=== PATIENT | female | born 1990 | race Caucasian/White ===

== ENCOUNTER 2016-10-19 20:56 | Emergency (ER) | payer OTHER ==
[2016-10-19 21:07] VITALS: O2SAT 100
--- NOTE | 2016-10-19 21:47 | C.PDOC ---
History Of Present Illness Patient is a 26 y/o female, 15 weeks , presents to the ED for evaluation after noticing blood when she wiped herself after urination. Patient states she did not notice this in her first . Notes she had a c- section 1 year ago. 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 Otherwise, denies any dysuria, urinary frequency, retentions, abdominal pain, n/ v/d, fever, or any other associated symptoms at this time. Time Seen by Provider: 10/19/16 21:30 Chief Complaint (Nursing): Female Genitourinary History Per: Patient History/Exam Limitations: no limitations Onset/Duration Of Symptoms: Days Current Symptoms Are (Timing): Still Present Severity: None Pain Scale Rating Of: 0 Associated Symptoms: denies: Fever, Chills, Nausea, Vomiting, Diarrhea, Loss Of Appetite, Back Pain, Chest Pain, Constipation Alleviating Factors: None Recent travel outside of the [place]: No Additional History Per: Patient Past Medical History Reviewed: Historical Data, Nursing Documentation, Vital Signs Vital Signs: Last Vital Signs Temp 99.3 F 10/19/16 21:00 Pulse 95 H 10/19/16 21:00 Resp 16 10/19/16 21:00 BP 111/72 10/19/16 21:00 Pulse Ox 100 10/19/16 22:34 Family History: States: Unknown Family Hx - Social History Hx Alcohol Use: No Hx Substance Use: No - Immunization History Hx Tetanus Toxoid Vaccination: No Hx Influenza Vaccination: No Hx Pneumococcal Vaccination: No Review Of Systems Except As Marked, All Systems Reviewed And Found Negative. Constitutional: Negative for: Fever, Chills Gastrointestinal: Negative for: Nausea, Vomiting, Abdominal Pain, Diarrhea, Constipation Genitourinary: Positive for: Other (blood when wiping). Negative for: Dysuria, Frequency, Incontinence, Vaginal Discharge, Pelvic Pain Musculoskeletal: Negative for: Back Pain Skin: Negative for: Rash Physical Exam - Physical Exam Appears: Non-toxic, No Acute Distress Skin: Normal Color, Warm, Dry Head: Atraumatic, Normacephalic Eye(s): bilateral: Normal Inspection Neck: Normal ROM, Supple Chest: Symmetrical Cardiovascular: Rhythm Regular, No Murmur Respiratory: Normal Breath Sounds, No Rales, No Rhonchi, No Wheezing Gastrointestinal/Abdominal: Soft, No Tenderness, No Guarding, No Rebound Extremity: Normal ROM, No Deformity Extremity: Bilateral: Atraumatic Neurological/Psych: Oriented x3, Normal Speech, Normal Cognition ED Course And Treatment - Laboratory Results Result Diagrams: 10/19/16 21:44 10/19/16 21:44 Lab Interpretation: No Acute Changes O2 Sat by Pulse Oximetry: 100 (on RA) Pulse Ox Interpretation: Normal - CT Scan/US US Other Rad Studies (CT/US): Read By Radiologist, Radiology Report Reviewed CT/US Interpretation: History: 26 years old, female; Signs and symptoms; Lmp or gestational age (in weeks): 06/27/2016;. Other: Vaginal spotting; ; Additional info: bleeding. Gender: female. Age: 26 years. Exam: US LTD ONE OR MORE FETUSES. Comparison: Ultrasound examination of the gravid uterus was performed, limited. There is a single intrauterine , at approximately 17 weeks menstrual age. Presentation is breech. Cardiac activity is noted with a heart rate of 137 beats per minute. The placenta is anterior and free of the os. Amniotic fluid appears appropriate. No gross abnormalities are seen. Impression: Limited study demonstrating intrauterine at approximately 17 weeks menstrual age, as above. Progress Note: Blood work, urinalysis, pelvis ultrasound ordered and reviewed. Reevaluation Time: 23:12 Reassessment Condition: Improved (Patient asymptomatic at this time.) Disposition - Disposition Disposition: HOME/ ROUTINE Disposition Time: 23:12 Condition: STABLE Instructions: (ED) - Clinical Impression Clinical Impression: Vaginal bleeding during , antepartum - Scribe Statement The provider has reviewed the documentation as recorded by the Derek Ferreira All medical record entries made by the [place] were at my direction and personally dictated by me. I have reviewed the chart and agree that the record accurately reflects my personal performance of the history, physical exam, medical decision making, and the department course for this patient. I have also personally directed, reviewed, and agree with the discharge instructions and disposition.
[2016-10-19 21:56] LABS: BASO % 0.2 % (0.0-2.0); EOS % 0.3 % (0.0-4.0); HEMOGLOBIN 10.5 g/dL (11.0-16.0); LYMPH # 3.7 K/uL (1.0-4.3); LYMPH % 27.1 % (20.0-40.0); MEAN CELL VOLUME 89.4 fL (81.0-99.0); MEAN CORPUSCULAR HEMOGLOBIN 29.3 pg (27.0-31.0); MEAN CORPUSCULAR HGB CONC 32.8 g/dL (33.0-37.0); MEAN PLATELET VOLUME 7.5 fL (7.2-11.7); MONO % 7.2 % (0.0-10.0); NEUT # 8.8 K/uL (1.8-7.0); NEUT % 65.2 % (50.0-75.0); RBC 3.56 Mil/uL (3.80-5.20); RED CELL DISTRIBUTION WIDTH 13.2 % (11.5-14.5); WHITE BLOOD COUNT 13.5 K/uL (4.8-10.8)
[2016-10-19 22:21] LABS: ALBUMIN 3.5 g/dL (3.5-5.0)
[2016-10-19 22:22] LABS: SQUAMOUS EPITHIAL 2 /hpf (0-5); URINE BACTERIA RARE (<OCC); URINE BILIRUBIN NEGATIVE (NEGATIVE); URINE BLOOD 2+ (NEGATIVE); URINE CLARITY Clear (Clear); URINE COLOR Straw (YELLOW); URINE GLUCOSE (UA) NORMAL (Normal); URINE LEUKOCYTE ESTERASE NEG Leu/uL (Negative); URINE NITRATE NEGATIVE (NEGATIVE); URINE PROTEIN NEGATIVE (NEGATIVE); URINE UROBILINOGEN NORMAL mg/dL (0.2-1.0)
[2016-10-19 22:24] LABS: ALB/GLOB RATIO 1.2 (1.0-2.1); AST/SGOT 20 U/L (14-36); GFR AFRICAN-AMERICAN > 60; GFR NON-AFRICAN AMERICAN > 60
[2016-10-19 22:25] LABS: ALT/SGPT 24 U/L (9-52); BLOOD UREA NITROGEN 3 mg/dL (7-17); CALCIUM 8.8 mg/dl (8.6-10.4)
--- NOTE | 2016-10-19 22:28 | US ---
History: 26 years old, female; Signs and symptoms; Lmp or gestational age (in weeks): 06/27/2016; Other: Vaginal spotting; ; Additional info: bleeding Gender: female Age: 26 years Exam: US LTD ONE OR MORE FETUSES Comparison: Ultrasound examination of the gravid uterus was performed, limited. There is a single intrauterine , at approximately 17 weeks menstrual age. Presentation is breech. Cardiac activity is noted with a heart rate of 137 beats per minute. The placenta is anterior and free of the os. Amniotic fluid appears appropriate. No gross abnormalities are seen. Impression: Limited study demonstrating intrauterine at approximately 17 weeks menstrual age, as above.
[2016-10-19] MEDS ORDERED: Potassium Chloride 20 mEq ER Tab PO ONE (23:22)
[2016-10-19 23:26] VITALS: BP 113/71; PULSE 69; RESP 20; TEMP 98.4
[2016-10-19] MEDS ORDERED: Potassium Chloride 20 mEq ER Tab PO STA (23:37)
== END 2016-10-19 23:30 | disposition home or self-care (01) ==
LOC: C.ER 20:56
DX: O20.9 Hemorrhage in early pregnancy, unspecified (principal); Z3A.15 15 weeks gestation of pregnancy

== ENCOUNTER 2017-03-28 06:14 | Inpatient (IN) | payer OTHER ==
[2017-03-28 06:28] VITALS: BMI 30.2
[2017-03-28] MEDS ORDERED: Lactated Ringer's 1,000 ML IV ONE (06:36)
[2017-03-28 06:57] LABS: HEMATOCRIT 33.5 % (34.0-47.0); MEAN CELL VOLUME 88.9 fL (81.0-99.0); MEAN CORPUSCULAR HEMOGLOBIN 29.6 pg (27.0-31.0); MEAN CORPUSCULAR HGB CONC 33.3 g/dL (33.0-37.0); MEAN PLATELET VOLUME 9.5 fL (7.2-11.7); RED CELL DISTRIBUTION WIDTH 15.5 % (11.5-14.5); WHITE BLOOD COUNT 11.3 K/uL (4.8-10.8)
[2017-03-28 07:08] LABS: ALKALINE PHOSPHATASE 174 U/L (38-126); ALT/SGPT 18 U/L (9-52); AST/SGOT 19 U/L (14-36); BILIRUBIN,TOTAL 0.4 mg/dL (0.2-1.3); BLOOD UREA NITROGEN 6 mg/dL (7-17); CALCIUM 8.9 mg/dl (8.6-10.4); CARBON DIOXIDE 21 mmol/L (22-30); CHLORIDE 103 mmol/L (98-107); GFR AFRICAN-AMERICAN > 60; GLUCOSE,RANDOM 66 mg/dL (65-105); POTASSIUM 3.7 mmol/L (3.6-5.2); SODIUM 131 mmol/L (132-148); TOTAL PROTEIN 6.5 g/dL (6.3-8.3)
--- NOTE | 2017-03-28 07:08 | OBADHP ---
Datetime: 03/28/2017 07:03 Admit Comment, IP Provider: chief complaint-scheduled csection HPI 27 y/o at 39.1 wga here for scheduled csection cours euncomplicated a sper patient PMH denies PSH csection OBGYN HX Socila hx deneis tobacco,alochol or illicit drug use Exam see exam section A/P Patienta t 39.1wga here for scheduled csection -admit -see orders Extremities - PN: Normal Abdomen - PN: Normal Back - PN: Normal Lungs - PN: Normal Heart - PN: Normal Neurologic - PN: Normal General - PN: Normal Vital Signs Provider: Reviewed; Within Normal Limits IP Chief Complaint: Scheduled Section FHR Category Provider Fetus A: Category I EGA AdmitDate IP: 39.1 IP Adm Impression: Term, intrauterine IP Admit Plan: Admit to unit; Initiate Section protocol
[2017-03-28] MEDS ORDERED: Sodium Citrate/Citric Acid 15 ml Sol PO ONE (07:09)
[2017-03-28 07:12] LABS: RBC URINE < 1 /hpf (0-3); URINE BACTERIA RARE (<OCC); URINE BILIRUBIN NEGATIVE (NEGATIVE); URINE BLOOD NEGATIVE (NEGATIVE); URINE COLOR Yellow (YELLOW); URINE GLUCOSE (UA) NORMAL (Normal); URINE KETONE TRACE mg/dL (NEGATIVE); URINE LEUKOCYTE ESTERASE NEG Leu/uL (Negative); URINE PROTEIN NEGATIVE (NEGATIVE); URINE UROBILINOGEN NORMAL mg/dL (0.2-1.0); WBC URINE 3 /hpf (0-5)
[2017-03-28 07:21] LABS: ALB/GLOB RATIO 1.1 (1.0-2.1)
[2017-03-28] MEDS ORDERED: Sodium Citrate/Citric Acid 15 ml Sol ONE (07:34)
[2017-03-28] MEDS ORDERED: ceFAZolin IV 2 gm in Dextrose 2 GM/50 ML BAG IVPB ONE ×2 (07:34→08:00)
[2017-03-28] MEDS ORDERED: Oxytocin 10 Units/ml Inj ONE (07:34)
[2017-03-28] MEDS ORDERED: Oxytocin 20 units in LR 2,000 ML IV ONE (07:35)
[2017-03-28] MEDS ORDERED: ePHEDrine 50 mg/ml Inj ONE (07:59)
[2017-03-28] MEDS ORDERED: Phenylephrine 10 mg/ml Inj ONE (08:25)
[2017-03-28] MEDS: Prenatal Multivit/Folic Acid/Iron Tab PO SCH (13:28)
[2017-03-28] MEDS: Simethicone 80 mg Chewtab PO SCH ×4 (13:28→23:25)
[2017-03-28 16:13] VITALS: RESP 20
[2017-03-28] MEDS: Oxycodone/Acetaminophen 5/325 mg Tab PO PRN ×2 (17:19→19:07)
--- NOTE | 2017-03-28 19:20 | OBDS ---
DELIVERY PERSONNEL Delivery Doctor: Shine Irving MD Scrub Nurse: Belen Lechuga [employer] Advisor: Suzanne García RN Anesthesiologist: MATERNAL INFORMATION Delivery Anesthesia: Spinal Medications in Delivery: Pitocin 20 unit IV Estimated Blood Loss (ml): 1000 Placenta Cultured: Yes Maternal Complications: None RN Comments: Liveborn Baby Boy. 9-9 Provider Comments: Repeat transverse section performed with delivery of live male infant, d irect OP position, weight 9lb 3oz, 's 9/9. Cord pH 7.10; base XS -12.2. Modified [employer] [place] procedu re performed for permanent sterilizaion - uncomplicated. Lysis of adhesion also performed. Patient t olerated procedure well. Hemostasis assured. LABOR SUMMARY EDC: 04/03/2017 00:00 No. Babies in Womb: 1 Attempted: No Labor Anesthesia: None LABOR INFORMATION Reason for Induction: Not Applicable Oxytocin: N/A Group B Beta Strep: Negative (Annotations: 03/01/17) Antibiotics # of Doses: 1 Antibiotics Time of Last Dose: Ancef 2gm IV @0803 Steroids Given: None Reason Steroids Not Administered: Not Applicable MEMBRANES Membranes Rupture Method: Artificial Rupture of Membranes: 03/28/2017 08:43 Length of Rupture (hrs): 0.02 Amniotic Fluid Color: Clear Amniotic Fluid Amount: Moderate Amniotic Fluid Odor: Normal STAGES OF LABOR Stage 3 hrs: 0 Stage 3 min: 1 CSECTION DELIVERY Primary Indication: Repeat Elective CSection Urgency: Non Elective CSection Incidence: Repeat Labor: Labor Elective: Nonelective CSection Incision: Lower Uterine Transverse Sterilization Procedure: Kyra Uterine Closure: Three layers BABY A INFORMATION Infant Delivery Date/Time: 03/28/2017 08:44 Method of Delivery: Born in Route : No : N/A Forceps: N/A Vacuum Extraction: N/A Shoulder Dystocia : No SHOULDER DYSTOCIA BABY A Delivery Date/Time: 03/28/2017 08:44 PRESENTATION/POSITION BABY A Presentation: Cephalic Cephalic Presentation: Vertex Vertex Position: Direct OP Breech Presentation: N/A PLACENTA INFORMATION BABY A Placenta Delivery Time : 03/28/2017 08:45 Placenta Method of Delivery: Manual Removal Placenta Status: Delivered SCORES BABY A Heart Rate 1 min: >100 bpm Resp Effort 1 min: Good Cry Reflex Irritability 1 min: Cough or Sneeze or Pulls Away Muscle Tone 1 min: Active Motion Color 1 min: Body [place], Extremities Blue Resuscitation Effort 1 min: N/A SCORE 1 MIN: 9 Heart Rate 5 min: >100 bpm Resp Effort 5 min: Good Cry Reflex Irritability 5 min: Cough or Sneeze or Pulls Away Muscle Tone 5 min: Active Motion Color 5 min: Body [place], Extremities Blue Resuscitation Effort 5 min: N/A SCORE 5 MIN: 9 INFANT INFORMATION BABY A Gestational Age at Delivery: 39.1 Gestational Status: Term Infant Outcome : Liveborn Condition : Stable Sex: Male IDENTIFICATION/MEDS BABY A ID Band Number: [id number] ID Band Location: Left Leg; Left Arm Sensor Applied: Yes Sensor Number: [id number] Sensor Location : Cord Clamp Vitamin K Given : Not Given Erythromycin Given: Not Given WEIGHT/LENGTH BABY A Birthweight (gms): 4160 Infant Weight (lb): 9 Weight (oz): 3 Length Inches: 20.00 Infant Length cms: 50.8 CORD INFORMATION BABY A No. Cord Vessels: 3 Nuchal Cord : N/A Infant Cord pH Baby Arterial: 7.10 Cord Blood Taken: Yes Infant Suction: Mouth; Nose ASSESSMENT BABY A Infant Complications: None Physical Findings at Delivery: Within Normal Limits Infant Respirations: Appears Normal Marble Cutter/ALS Called : No Care By: Transferred To: Nursery
--- NOTE | 2017-03-28 19:28 | PCM.SURG1 ---
Surgeon's Initial Post Op Note - Surgeon's Notes Surgeon: Sharon Irving MD Special Educator: Stanley Esparza MD Type of Anesthesia: Spinal Anesthesia Administered By: Ashish Ramsey MD Pre-Operative Diagnosis: 39 weeks 2 days gestation, previous section; desires permanent sterilizaton. Operative Findings: Live male , direct OP, weight 9lb 3 oz, 's 9/9. Cord pH 7.10, base excess -12.2. Mild filmy adhesions anteriorly; one moderately dense band of adheison anteriorly at level of body. Normal uterus; normal ovaries and fallopian tubes, bilaterally Post-Operative Diagnosis: Same; status post bilateral tubal ligation; lysis of adhesion Operation Performed: Transverse [place] section. Lysis of adhesion. Bilateral tubal ligation Specimen/Specimens Removed: Segments of right and left fallopian tubes Estimated Blood Loss: EBL {In ML}: 1,000 (U.O. 300 mL; IVFs 1,300 mL LR with 20 units pitocin) Blood Products Given: N/A Drains Used: No Drains Post-Op Condition: Good Date of Surgery/Procedure: 03/28/17 Time of Surgery/Procedure: 10:00
[2017-03-29] MEDS: Oxycodone/Acetaminophen 5/325 mg Tab PO PRN ×4 (03:02→21:25)
--- NOTE | 2017-03-29 04:37 | OP ---
PROCEDURE DATE: 03/28/2017 PREOPERATIVE DIAGNOSES: A 39 weeks 2 days gestation, previous section, desiring permanent sterilization. POSTOPERATIVE DIAGNOSES: A 39 weeks 2 days gestation, previous section, desiring permanent sterilization, status post bilateral tubal ligation, lysis of adhesions. SURGEON: Sharon Irving MD. ENVIRONMENTAL COMPLIANCE SPECIALIST: Stanley Esparza MD. ANESTHESIOLOGIST: Ashish Ramsey MD. ANESTHESIA TYPE: Spinal. OPERATIVE FINDINGS: Live male from a direct occipital posterior position, weight of 9 pounds 3 ounces and Apgars of 9 and 9 at 1 and 5 minutes respectively. Cord pH was 7.10, base excess was -12.2. Mild filmy adhesions were noted anteriorly and there was one moderately dense band of adhesion anteriorly at the level of the body of the uterus. Otherwise, uterus was normal with normal ovaries and fallopian tubes bilaterally. OPERATION PERFORMED: Transverse section, lysis of adhesions and bilateral tubal ligation. SPECIMENS: Segment of right and left fallopian tubes was submitted to pathology. ESTIMATED BLOOD LOSS: 1000 mL. URINE OUTPUT: 300 mL. INTRAVENOUS FLUIDS: 1300 mL of lactated Ringer's with 20 units of Pitocin in each bag. BLOOD PRODUCTS GIVEN: None. COMPLICATIONS: None. PROCEDURE IN DETAIL: The patient was taken to the operating room after having obtained informed consent for the anticipated procedure. This included a discussion of possible risks and complications including, but not limited to, infection requiring continued antibiotics, hemorrhage requiring blood transfusion, repair of any damage to internal organs, possible hysterectomy. The patient desired permanent sterilization, and upon review of the consent for the same, she reaffirmed her desire for permanent sterilization. The patient received Mefoxin 2 g prior to being transferred to the main recovery room and a Johnson indwelling catheter had been inserted under sterile condition. Once in the operating room, she was placed on the operating room table where spinal anesthesia was administered without incident. She was immediately repositioned into supine position. The abdomen was prepped and she was subsequently draped in the usual sterile fashion. After assuring an adequate level of anesthesia, using a scalpel, incision was made through the previous scar. The incision was carried down through the subcutaneous tissue to the level of the fascia. The fascia was identified and nicked and this incision was extended bilaterally using the Bovie electrocautery. The rectus muscle was dissected off the overlying fascia. Using the scalpel, the muscle was in the midline. The parietal peritoneum was tented up using two Urszula clamps and the abdomen was entered using sharp dissection. The uterus was extremely deviated upon entering the abdominal cavity and in making attempts to orient the uterus in a more anatomic manner, filmy adhesions that were noted were lysed by blunt dissection. There was one band as described above that was identified. It was doubly clamped using Urszula clamps and the adhesion was lysed and secured using free tie 0 chromic however of the sides of the uterus, getting safely to the lower uterine segment was not possible and therefore the incision was actually made more in the area of the body of the uterus. Upon getting to the level of the anterior placenta, dissecting through the placenta and getting to the amnion, amniotomy was performed and a moderate amount of clear fluid was obtained. Atraumatic delivery of the infant with findings as above then ensued on the operative field. The 's mouth and nose were bulb suctioned as the cord was doubly clamped and cut. The was handed off the operative field to the mechanical manager in attendance. A segment of the umbilical cord was requested for cord pH analysis with results as above. With bimanual extraction, the placenta was removed. It was grossly intact with three vessels in the cord. The uterus was then successfully exteriorized for closure. This was done in three layers; the first two layers were in a running interlocking manner and the third layer which incorporated the serosa was done in a horizontal imbricating manner. Additional sutures were needed along the uterine incision using 2-0 Monocryl and [id number] stitch to assure hemostasis. At the area of the lysis of adhesions further up on the uterus, hemostasis was again assured using 2-0 Monocryl in a running interlocking fashion. Attention was then directed to the right fallopian tube in the area of the mid-isthmic. An intervening segment of clear mesosalpinx was noted. This was grasped with a Jitendra clamp. Using plain gut x2, free ties were applied with blanching of the fallopian tube noted. The intervening mesosalpinx was pierced using the Metzenbaum and the segment was excised and submitted to pathology for further affirmation. Hemostasis was assured using the Bovie electrocautery. A similar procedure was performed on the left fallopian tube. After assuring adequate hemostasis, attention was then directed to the posterior aspect of the uterus. Copious irrigation was performed. Findings as above. The attention was then redirected back to the uterine incision and the bladder flap was reapproximated using 2-0 chromic in a running fashion. A layer of Surgicel actually had been placed along the uterine incision prior to reapproximating the bladder flap. The uterus was then returned to the abdominal cavity. The paracolic gutters were cleared of all debris. The ligated ends of fallopian tubes were identified and noted to be hemostatic. The parietal peritoneum was then reapproximated using 2-0 chromic in a running fashion. The muscle was reapproximated using 2-0 chromic in a running fashion. The fascia was reapproximated using 1-0 Vicryl in a running fashion in one half. The subcutaneous tissue was reapproximated using plain catgut in a running manner and the skin was reapproximated using surgical clips. Pressure dressing was applied. The patient was repositioned in a supine manner. Exploration of the uterine cavity then ensued and the uterus was emptied of all clots and debris. It was contracted and firm and noted to be at the level of the umbilicus. The patient tolerated the procedure well. She was transferred back to [facility] in stable condition. The had been transferred initially to [facility] in stable condition. Dr. Esparza was present throughout the entire procedure from beginning to end. His presence was necessary for 1. Adequate visualization of the operative field at all times. 2. Safe and atraumatic delivery of the as described above. 3. Assuring adequate hemostasis throughout. Sharon MD Aristides
--- NOTE | 2017-03-29 06:43 | OBPPN ---
Datetime: 03/29/2017 06:40 PP Pain Prov: Within normal limits PP Nausea Prov: Denies PP Abdomen/Uterus Prov: Normal PP Extremities Prov: Normal PP C/S Incision Prov: Normal PP Comments Phys Exam Prov: fudus below um ext mild edema,no calf ten incision clean and dry PP Impression Prov: Normal progression PP Plan Prov: Continue present management PP Progress Note Prov: pt was seen at bed side, pain under control,no n/v, tolerating liquid deit,wa iting to void,min lochia, flatus_ pod#1 s/p c/s cbc advance deit as tolwerated cont pain man encourage ambulation cont post op care Vital Signs Provider PP: Within Normal Limits
[2017-03-29 07:25] LABS: BASO % 0.2 % (0.0-2.0); EOS % 0.1 % (0.0-4.0); HEMATOCRIT 28.9 % (34.0-47.0); LYMPH # 1.8 K/uL (1.0-4.3); LYMPH % 12.7 % (20.0-40.0); MEAN CELL VOLUME 88.8 fL (81.0-99.0); MEAN CORPUSCULAR HEMOGLOBIN 29.3 pg (27.0-31.0); MEAN CORPUSCULAR HGB CONC 33.1 g/dL (33.0-37.0); MEAN PLATELET VOLUME 9.2 fL (7.2-11.7); MONO # 1.3 K/uL (0.0-0.8); MONO % 8.8 % (0.0-10.0); NRBC % 0.1 % (0.0-2.0); RED CELL DISTRIBUTION WIDTH 15.6 % (11.5-14.5); WHITE BLOOD COUNT 14.2 K/uL (4.8-10.8)
[2017-03-29] MEDS ORDERED: Bisacodyl 5mg EC Tab PO ONE ×2 (09:11→10:30)
[2017-03-29] MEDS: Simethicone 80 mg Chewtab PO SCH ×4 (10:17→21:27)
[2017-03-29] MEDS: Prenatal Multivit/Folic Acid/Iron Tab PO SCH (10:17)
[2017-03-30] MEDS: Oxycodone/Acetaminophen 5/325 mg Tab PO PRN ×2 (06:37→12:18)
[2017-03-30] MEDS: Simethicone 80 mg Chewtab PO SCH ×4 (10:23→22:06)
[2017-03-30] MEDS: Prenatal Multivit/Folic Acid/Iron Tab PO SCH (10:23)
[2017-03-31] MEDS: Oxycodone/Acetaminophen 5/325 mg Tab PO PRN ×2 (02:52→09:00)
[2017-03-31 08:20] VITALS: BP 123/77; PULSE 87; TEMP 97.2; O2SAT 100
[2017-03-31] MEDS: Simethicone 80 mg Chewtab PO SCH (09:03)
[2017-03-31] MEDS: Prenatal Multivit/Folic Acid/Iron Tab PO SCH (09:03)
--- NOTE | 2017-03-31 16:54 | OBDCSUM ---
Datetime: 03/31/2017 09:24 Discharged to, Provider: Home Follow up at, Provider: [facility] Disch Instr Activity: Normal activity Disch Instr Diet: Regular Discharge Diet restrict Prov: none Discharge Diagnosis, Provider: Term Delivered Discharge Time: 03/31/2017 10:30 Follow up in weeks, Provider: 2017 for removal of roberta Disch Referrals: None Disch Activity Restrictions: No exercising; No lifting; No driving; Minimize walking; Minimize stair -climbing; No sexual activity; Nothing in vagina - [place], tampons, douche Discharge Comment, Provider: pa home no sex percocet prn f/u clinic [facility] for roberta removal Datetime: 03/31/2017 07:53 Discharged to, Provider: Home Follow up at, Provider: Clinic Discharge Instructions, Provider: Routine instructions given Follow up in weeks, Provider: 1 week for staple removal Disch Activity Restrictions: No exercising; No lifting; No driving; Minimize stair-climbing; No sexu al activity; Nothing in vagina - [place], tampons, douche Discharge Comment, Provider: Follow up with [facility] - appointment scheduled for 04/04/2017 for staple r emoval. Go to ER if you fever, sever pain, redness or discharge from the incision site. Discharge Diagnosis Prov Other: RLTCS
--- NOTE | 2017-03-31 16:54 | OBPPN ---
Datetime: 03/31/2017 16:52 PP Pain Prov: Within normal limits PP Nausea Prov: Denies PP Flatus Prov: Yes PP Abdomen/Uterus Prov: Normal PP Lochia Prov: Normal PP Extremities Prov: Normal PP C/S Incision Prov: Normal PP Comments Phys Exam Prov: fudus below um ext no edema,nnocalf incision ckean and dry PP Impression Prov: Normal progression PP Plan Prov: Discharge PP Progress Note Prov: pt was seen at bed side, pain under control,no n/v, tolerating deit,voiding, min lochia, flatus+ pod#3 s/p c/s dc home no sex percocet prn f/u clinic on [place] for roberta removal Vital Signs Provider PP: Reviewed; Within Normal Limits Datetime: 03/29/2017 06:40 PP BM Prov: Yes
== END 2017-03-31 11:05 | disposition home or self-care (01) | DRG 766 ==
LOC: C.4D 06:14 → C.4M 12:09
PROVIDERS: ADMIT Obstetrics & Gynecology; ATTEND Obstetrics & Gynecology
PROC: 10D00Z1 Extraction of Products of Conception, Low, Open Approach (ICD-10-PCS; principal; 2017-03-28)
PROC: 0UB70ZZ Excision of Bilateral Fallopian Tubes, Open Approach (ICD-10-PCS; 2017-03-28)
DX: O34.211 Maternal care for low transverse scar from previous cesarean delivery (principal); Z30.2 Encounter for sterilization; Z37.0 Single live birth; Z3A.39 39 weeks gestation of pregnancy